=== PATIENT | female | born 1975 | race Two or more races ===

== ENCOUNTER 2019-10-30 10:54 | Outpatient (CLI) | payer OTHER | END 2019-10-30 11:01 | disposition home or self-care (01) | LOC: SONOGRAMA 10:54 | DX: E04.1 Nontoxic single thyroid nodule (principal) ==

== ENCOUNTER 2020-04-08 10:39 | Outpatient (CLI) | payer OTHER | END 2020-04-08 10:40 | disposition home or self-care (01) | LOC: SONOGRAMA 10:39 | PROVIDERS: ATTEND Pathology Anatomic Pathology & Clinical Pathology | DX: E04.1 Nontoxic single thyroid nodule (principal) ==

== ENCOUNTER 2023-07-05 08:36 | Outpatient (CLI) | payer OTHER | END 2023-07-05 09:04 | disposition home or self-care (01) | LOC: SONOGRAMA 08:36 | PROVIDERS: ATTEND Pathology Anatomic Pathology & Clinical Pathology | DX: D36.0 Benign neoplasm of lymph nodes (principal) ==

== ENCOUNTER 2024-10-06 08:56 | Outpatient (CLI) | payer OTHER | END 2024-10-06 09:02 | disposition home or self-care (01) | LOC: SONOGRAMA 08:56 | PROVIDERS: ATTEND Pathology Anatomic Pathology & Clinical Pathology | DX: R59.0 Localized enlarged lymph nodes (principal); C73 Malignant neoplasm of thyroid gland; E03.9 Hypothyroidism, unspecified ==